=== PATIENT | male | born 1960 ===

== ENCOUNTER 2017-01-25 09:23 | Inpatient (IN) | payer OTHER ==
[2017-01-25 10:12] LABS: ADD MANUAL DIFF? NO
[2017-01-25 10:13] LABS: VENOUS BLOOD GAS BASE EXCESS -1.7 mmol/L (0.0-2.0); VENOUS BLOOD PH 7.39 (7.32-7.43)
[2017-01-25 10:14] LABS: BASO # 0.01 K/mm3 (0.0-2.0); BASO % 0.2 % (0.0-3.0); GRAN % 93.4 % (50.0-68.0); HEMATOCRIT 35.3 % (42.0-52.0); LYMPH # 0.2 (1.2-3.4); LYMPH % 4.5 % (22.0-35.0); MEAN CELL VOLUME 94.4 fL (80.0-105.0); MEAN CORPUSCULAR HEMOGLOBIN 34.2 pg (25.0-35.0); MEAN CORPUSCULAR HGB CONC 36.3 g/dl (31.0-37.0); MEAN PLATELET VOLUME 10.2 fl (7.0-11.0); MONO # 0.1 (0.1-0.6); MONO % 1.9 % (1.0-6.0); PLATELET COUNT 294 10^3/uL (120.0-450.0); RED CELL DISTRIBUTION WIDTH 14.3 % (11.5-14.5); WHITE BLOOD COUNT 5.4 10^3/ul (4.5-11.0)
--- NOTE | 2017-01-25 10:17 | RAD ---
HISTORY: Sepsis Patient COMPARISON: No prior. FINDINGS: LUNGS: Extensive opacification throughout left levar thorax may represent multi lobar pneumonia. No right-sided opacity. PLEURA: No significant pleural effusion identified, no pneumothorax apparent. CARDIOVASCULAR: Heart size cannot be evaluated due to silhouetting from adjacent alveolar opacity. OSSEOUS STRUCTURES: No significant abnormalities. VISUALIZED UPPER ABDOMEN: Normal. OTHER FINDINGS: None. IMPRESSION: Probable multi lobar pneumonia of left lung. No pleural effusion.
[2017-01-25 10:18] LABS: ARTERIAL BLOOD GAS HCO3 19.6 mmol/L (21-28); ARTERIAL BLOOD GAS PH 7.52 (7.35-7.45)
[2017-01-25] MEDS ORDERED: Vancomycin 1gm in NS 250ml 250 ML IVPB STA (10:20)
[2017-01-25] MEDS ORDERED: Cefepime IV 2 gm in NS 100 ML IVPB STA (10:20)
[2017-01-25 10:23] LABS: ALKALINE PHOSPHATASE 74 U/L (38-133); ALT/SGPT 32 U/L (7-56); AST/SGOT 36 U/L (15-59); BILIRUBIN,TOTAL 1.1 mg/dL (0.2-1.3); BLOOD UREA NITROGEN 14 mg/dL (7-21); CALCIUM 8.6 mg/dL (8.4-10.5); CARBON DIOXIDE 24 mmol/L (21-33); CHLORIDE 82 mmol/L (98-107); GFR AFRICAN-AMERICAN > 60; GLUCOSE,RANDOM 210 mg/dL (70-110); MAGNESIUM 1.7 mg/dL (1.7-2.2); PHOSPHOROUS 1.6 mg/dL (2.5-4.5); POTASSIUM 3.3 mmol/L (3.6-5.0); SODIUM 120 mmol/L (132-148); TOTAL PROTEIN 8.1 g/dL (5.8-8.3)
[2017-01-25 10:24] LABS: INR 0.94 (0.93-1.08); PARTIAL THROMBOPLASTIN TIME 39.6 Seconds (23.7-30.8)
[2017-01-25] MEDS ORDERED: Albuterol-Ipratrop 3 mg / 0.5 (3 ml) UD ONE (10:33)
[2017-01-25 10:35] LABS: TROPONIN I 0.03 ng/mL
[2017-01-25] MEDS ORDERED: Potassium Chloride 20 mEq ER Tab PO STA (10:35)
[2017-01-25 10:39] LABS: PH,URINE 6.5 (4.7-8.0); URINE BILIRUBIN NEGATIVE (NEGATIVE); URINE BLOOD LARGE (NEGATIVE); URINE GLUCOSE (UA) NEGATIVE (NEGATIVE); URINE KETONE NEGATIVE (NEGATIVE); URINE LEUKOCYTE ESTERASE NEGATIVE Leu/uL (NEGATIVE); URINE PROTEIN 100 mg/dL (<30 mg/dL); URINE UROBILINOGEN >=8.0 E.U./dL (<1 E.U./dL)
[2017-01-25 10:41] LABS: URINE APPEARANCE SL CLOUDY (CLEAR); URINE COLOR YELLOW (YELLOW)
[2017-01-25 10:46] LABS: URINE BACTERIA TRACE (NEG); URINE RBC TNTC /hpf (0-2); URINE WBC 0 - 2 /hpf (0-6)
--- NOTE | 2017-01-25 11:11 | ED PDOC ---
Arrival/HPI - General Chief Complaint: Altered Mental Status Time Seen by Provider: 01/25/17 09:45 Historian: Patient, Other ("ex-") - History of Present Illness Narrative History of Present Illness (Text): 01/25/17 11:08 Patient is a 56 yo male who states that he has been "sick since " which he described as feeling tired and coughing for several days. Patient presents with family member who identifies herself as his ex-, who states that "this morning at 8 am when he woke up he seemed confused and unsteady". His family states that he did not seem this tired before he went to bed last night. Family states that he "had the flu starting last week" which she reports consists of bodyaches and coughing. He reportedly was coughing a great deal last night. Ex- states that he recently moved back in with her and she has been home with him over the past few days. She reports prior history of "drinking", but she is not certain if he has been drinking recently. Patient denies drinking recently. He does admit to smoking daily. Family states she "thinks he has been taking a lot of Dayquil or Nyquil". Patient denies taking excessive amount, denies overdose or suicidal ideation. Also patient reportedly has been evaluated for some abdominal distension by his PMD Dr. Renteria. He denies abdominal pain, nausea or vomiting currently. Patient denies headache, denies neck pain, denies chest pain or pleuritic discomfort. Patient denies recent travel or known unusual exposures. Time/Duration: < week Symptom Onset: Gradual Symptom Course: Worsening Past Medical History - Travel History Have you recently traveled outside [place] w/in the past 3 mons?: No - Infectious Disease Hx of Infectious Diseases: None - Cardiac Hx Hypertension: Yes - Psychiatric Hx Anxiety: Yes Hx Substance Use: No Family/Social History Family/Social History: Unknown Family HX Smoking Status: Light Smoker < 10 Cigarettes Daily Hx Alcohol Use: Yes Hx Substance Use: No Allergies/Home Meds Allergies/Adverse Reactions: Allergies No Known Allergies Allergy (Verified 01/25/17 09:37) Home Medications: Home Meds Medication Instructions Recorded Confirmed Ammonium Lactate 12% [Lac-Hydrin] 72 % TP DAILY 01/25/17 01/25/17 Betamethasone Creame 45 gm TOP BID 01/25/17 01/25/17 Enalapril/Hydrochlorothiazide 5 - 12.5 mg PO BID 01/25/17 01/25/17 [Enalapril Maleate and Hydrochlorothiazide 10 ] Levocetirizine Dihydrochloride 5 mg PO HS 01/25/17 01/25/17 [Xyzal] Mometasone 0.1% [Elocon 0.1%] 0.1 % TP DAILY 01/25/17 01/25/17 PARoxetine [Paxil] 60 mg PO DAILY 01/25/17 01/25/17 Review of Systems - Review of Systems Constitutional: Fatigue, Fevers Eyes: absent: Vision Changes, Photophobia, Eye Pain ENT: absent: Hearing Changes, Sore Throat, Rhinorrhea, Epistaxis Respiratory: SOB, Cough. absent: Sputum Cardiovascular: CORNEJO. absent: Chest Pain, Palpitations, Edema, Syncope Gastrointestinal: Appetite Changes. absent: Abdominal Pain, Hematochezia, Hematemesis Genitourinary Male: absent: Dysuria, Frequency, Hematuria, Urinary Output Changes Musculoskeletal: absent: Back Pain, Joint Swelling Skin: absent: Rash Neurological: Gait Changes, Disequilibrium. absent: Headache, Dizziness, Focal Weakness, Facial Droop, Seizure Endocrine: absent: Polyuria Hemo/Lymphatic: absent: Easy Bleeding Psychiatric: absent: Anxiety, Depression, Suicidal Ideation Physical Exam - Physical Exam Narrative Physical Exam (Text): Head: Atraumatic. Normocephalic. No scalp lesions or facial edema noted. Eyes: PERRL. EOMI. Conjunctivae are not pale or icteric. ENT: Mucous membranes are dry. Oropharynx without exudates or lesions. No pharyngeal erythema or edema. Neck: Supple. Full ROM. No JVD. No lymphadenopathy. NO MENINGEAL SIGNS. Full flexion and extension. No midline pain. Trachea midline. Cardiovascular: Tachycardic with systolic murmur. Pulmonary/Chest: Tachypneic, bilateral rhonchi left greater than right, diminished breath sounds at left base. Chest wall nontender. Accessory muscle usage. Abdominal: Distended but soft and nontender. No pulsatile masses. ? hepatomegaly on palpation. Rectal: brown heme negative stool, no melena Genitourinary: no testicular pain or swelling Back: No CVA tenderness. No rash. No midline pain or erythema or edema. Extremities: No edema. No cyanosis. No clubbing. Full range of motion in all extremities. No calf tenderness. Distal pulses intact. Skin: Skin is diaphoretic. No petechiae or purpura. Neurological: Alert, awake, and oriented. He knows where he is, identifies date and year, answers ALL questions appropriately in ED. He appears fatigued and answers questions slowly but is appropriate in ED, no slurred speech. No meningeal signs. Not hyperreflexive. No pronator drift noted. No facial droop. No meningeal signs. Cranial nerves intact. Visual acuity and staley intact. Motor exam intact in upper and lower extremities. Sensory exam intact. Psychiatric: Denies suicidal ideation. Answers questions appropriately. Vital Signs Reviewed: Yes Vital Signs Temp Pulse Resp BP Pulse Ox 01/25/17 14:40 136 H 26 H 93/47 L 88 L 01/25/17 14:20 142 H 24 105/65 89 L 01/25/17 14:06 139 H 25 H 109/70 88 L 01/25/17 13:45 144 H 24 113/74 89 L 01/25/17 13:30 102.5 F H 148 H 107/70 86 L 01/25/17 13:15 150 H 26 H 131/95 H 85 L 01/25/17 13:00 154 H 32 H 142/97 H 86 L 01/25/17 12:50 150 H 22 165/91 H 92 L 01/25/17 12:33 147 H 30 H 169/118 H 89 L 01/25/17 12:25 141 H 30 H 175/124 H 89 L 01/25/17 12:08 140 H 40 H 140/84 86 L 01/25/17 11:57 146 H 39 H 105/68 91 L 01/25/17 11:30 148 H 34 H 179/103 H 89 L 01/25/17 11:06 136 H 32 H 159/93 H 93 L 01/25/17 10:45 148 H 28 H 139/90 92 L 01/25/17 10:38 137 H 18 150/98 H 95 01/25/17 10:20 135 H 30 H 123/69 87 L 01/25/17 10:14 140 H 26 H 129/78 89 L 01/25/17 10:00 105.3 F H 01/25/17 09:45 102.8 F H 129 H 18 149/90 91 L 01/25/17 09:30 100.8 F H 137 H 18 158/93 H 94 L 01/25/17 09:24 102.8 F H 128 H 18 149/90 90 L Temperature: Febrile Pulse: Tachycardic Respiratory Rate: Tachypneic Appearance: Positive for: Ill-Appearing Pain Distress: Severe Mental Status: Positive for: Alert and Oriented X 3 Finger Stick Blood Glucose: 230 Medical Decision Making ED Course and Treatment: Patient seen upon arrival to [facility], accompanied by family member identified as his ex-. History obtained by ex- as well as patient. Family expresses concern that patient appeared confused and unsteady on his feet this morning approximately 8 am and expresses concern that "maybe he had a stroke I don't know he wasn't acting like this last night". On my initial exam, he is alert, oriented, although noted to be tachpyneic and tachycardic. Patient states he has been coughing and had "flu" for past several days. He was not evaluated by a physician over the past several days while he has been ill. Ex- states that his morning he "got up and seemed to be very weak" and "unsteady". Patient on initial ED exam answers all questions, oxygen saturations 97% on supplemental oxygen. Differential diagnosis initially reviewed with family at bedside. Rectal temperature requested given history of "flu", temp found to be 105. IV fluids and tylenol ordered. IV fluids ordered as per sepsis protocol as patient tachycardic, tachypneic and febrile. With serial exams, he remained awake, alert, conversive. NO headache or neck pain. Given initial history of "not acting himself this morning", consultation with on-call neurologist, Dr. Raphael obtained, although presentation I feel is most likely related to infectious etiology not cva/tia. Patient remains tachycardic and tachypneic. With noted fever, high suspicion for infectious component to his presentations. Chest xray reviewed, as well as radiologist interpretation, significant infiltrates noted consistent with pneumonia. IV maxipime and vancomycin ordered for suspicion of sepsis as well as pulmonary etiology of fever/infection given initial chest xray reading. IV Levaquin ordered as well. Nebulizers ordered, patient remained tachypneic. CT head and abdomen/pelvis ordered as there is a history of AMS prior to arrival , and patient noted to be hyponatremic. CT abdomen ordered as there is history of recent abdominal distension and "liver problems", to evaluate for additional sources of infection. Given hyponatremia cannot exclude specific infectious process such as Legionella or electrolyte derangement contributing to patient's symptoms. Given critical presentation of patient, emergent consultation obtained with icu physician. Case also discussed with Dr. Polina Leigh, on-call medical physician for admission, who requested Dr. Duval for pulmonology consultation as well as Dr. Alexandre for Infectious Disease consultation. Patient re-evaluated upon return from CT, noted to have worsening tachypnea, although on 100% face mask his saturations were 89-92%. Dr. Polina Leigh and Dr. Duval at bedside and evaluated patient at bedside. I also discussed chest xray, patient's exam and labs with Infectious Disease consult Dr. Gutierrez, covering for Dr. Alexandre, and discussed patient current antibiotics and management up until that point. IV fluids continued as per CODE SEPSIS protocol. I discussed with patient in length his abnormal chest xray as well as reviewed his labs. I discussed with him worsening oxygenation, and he states he feels more short of breath despite continued nebulizers and 100% oxygen. Due to increased tachypnea, hypoxia despite multiple nebs and 100% oxygen, and worsening accessory muscle usage, intubation was discussed with patient. I did discuss this with patient in length in terms of indications and risks. He denies prior medication allergies or adverse effect to medications. No other family members available at bedside. ID verified, patient prepared for rapid sequence intubation. Patient preoxygenated, Etomidate given for sedation, then succynicholine for paralysis. Secretions suctioned. Patient intubated with 7.5 ET tube, there is proper color change on detector after intubation, and there is equal breath sounds noted with bag ventilation after intubation. Post intubation chest xray reviewed, confirmed placement. Dr. Neda Hector, tree warden, presented to ED to evaluate patient. Care turned over to ICU team at 13:00. I discussed patient's critical condition in length and in laymen's terms with patient's ex-, by request she also requested that I speak to patient's children after my conversation with her. Instructor Trainer [employer] has reviewed patient's care with Dr. Renteria, patient's PMD. - Critical Care Critical Care Minutes: 75 minutes - Lab Interpretations Lab Results: 01/25/17 09:50 01/25/17 09:50 Lab Results 01/25/17 11:20: Serum Osmolality 258 L 01/25/17 11:10: Urine Opiates Screen Negative, Urine Methadone Screen Negative, Ur Barbiturates Screen Negative, Ur Phencyclidine Scrn Negative, Ur Amphetamines Screen Negative, U Benzodiazepines Scrn Negative, U Oth Cocaine Metabols Negative, U Cannabinoids Screen Negative 01/25/17 10:20: Urine Color Yellow, Urine Appearance Sl cloudy, Urine pH 6.5, Ur Specific [place] 1.020, Urine Protein 100 H, Urine Glucose (UA) Negative, Urine Ketones Negative, Urine Blood Large H, Urine Nitrate Negative, Urine Bilirubin Negative, Urine Urobilinogen >=8.0, Ur Leukocyte Esterase Negative, Urine RBC Tntc, Urine WBC 0 - 2, Urine Bacteria Trace 01/25/17 10:10: pCO2 24 L, pO2 75.0 L, HCO3 19.6 L, ABG pH 7.52 H, ABG Total CO2 20.3 L, ABG O2 Saturation 96.8, ABG Base Excess -1.6, ABG Potassium 3.0 L, Sodium 120.0 L*, Chloride 93.0 L, Glucose 189 H, Lactate 2.0, FiO2 100.0, Arterial Blood Potassium 3.0 L 01/25/17 09:50: WBC 5.4, RBC 3.74, Hgb 12.8 L, Hct 35.3 L, MCV 94.4, MCH 34.2, MCHC 36.3, RDW 14.3, Plt Count 294, MPV 10.2, Gran % 93.4 H, Lymph % (Auto) 4.5 L, Eaton % (Auto) 1.9, Eos % (Auto) 0.0 L, Baso % (Auto) 0.2, Gran # 5.00, Lymph # 0.2 L, Eaton # 0.1, Eos # 0.0, Baso # 0.01, PT 10.2, INR 0.94, APTT 39.6 H, pO2 35, VBG pH 7.39, VBG pCO2 38.0 L, VBG HCO3 23.0, VBG Total CO2 24.2, VBG O2 Sat (Calc) 65.8 H, VBG Base Excess -1.7 L, VBG Potassium 3.5 L, Sodium 121.0 L, Chloride 85.0 L, Glucose 209 H, Lactate 3.3 H, FiO2 21.0, Potassium 3.3 L, Carbon Dioxide 24, Anion Gap 17, BUN 14, Creatinine 1.0, Est GFR ( Amer) > 60, Est GFR (Non-Af Amer) > 60, Random Glucose 210 H, Calcium 8.6, Phosphorus 1.6 L, Magnesium 1.7, Total Bilirubin 1.1, AST 36, ALT 32, Alkaline Phosphatase 74, Lactate Dehydrogenase 500, Total Creatine Kinase 81, Troponin I 0.03, NT-Pro -B Natriuret Pep 689 H, Total Protein 8.1, Albumin 3.9, Globulin 4.1, Albumin/ Globulin Ratio 1.0 L, Venous Blood Potassium 3.5 L, Influenza Typ A,B (EIA) Negative for flu a/b 01/25/17 09:43: POC Glucose (mg/dL) 230 H 01/25/17 09:40: Salicylates < 1 L, Acetaminophen < 10.0 L, Alcohol, Quantitative < 10 I have reviewed the lab results: Yes Interpretation: Abnormal lab values - RAD Interpretation Radiology Orders: 01/25/17 09:45 CHEST PORTABLE [RAD] Stat 01/25/17 09:47 ABD & PELVIS W/O PO OR IV CONT [CT] Stat HEAD W/O CONTRAST [CT] Stat 01/25/17 10:59 CHEST W/O CONTRAST [CT] Stat 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 - EKG Interpretation EKG Interpretation (Text): 01/25/17 16:12 EKG at 0941 sinus tachycardia rate of 129 Interpreted by ED Physician: Yes Type: 12 lead EKG - Medication Orders Current Medication Orders: Discontinued Medications Acetaminophen (Tylenol 650 Mg Supp) 650 mg RC ONCE STA Stop: 01/25/17 09:49 Last Admin: 01/25/17 10:03 Dose: 650 MG Albuterol/Ipratropium (Duoneb 3 Mg/0.5 Mg (3 Ml) Ud) 3 ml IH Q15M CHANNING Stop: 01/25/17 11:16 Last Admin: 01/25/17 11:45 Dose: 3 ML Albuterol/Ipratropium (Duoneb 3 Mg/0.5 Mg (3 Ml) Ud) Confirm Administered Dose 3 ml .ROUTE .STK-MED ONE Stop: 01/25/17 10:34 Last Admin: 01/25/17 11:15 Dose: 3 ML Albuterol/Ipratropium (Duoneb 3 Mg/0.5 Mg (3 Ml) Ud) 3 ml IH Q15M CHANNING Stop: 01/25/17 12:01 Last Admin: 01/25/17 12:30 Dose: 3 ML Cisatracurium Besylate (Nimbex) 9 mg IV ONCE ONE Stop: 01/25/17 13:16 Last Admin: 01/25/17 13:20 Dose: 9 MG eMAR Start Stop Document 01/25/17 13:20 [facility] (Rec: 01/25/17 13:[id number]) Intravenous Solution Start Date 01/25/17 Start Time 13:20 End Date 01/25/17 End time 13:22 Total Infusion Time 2 Cisatracurium Besylate (Nimbex) 9 mg IV ONCE ONE Stop: 01/25/17 15:03 Epinephrine Bitartrate (Epinephrine) Confirm Administered Dose 1 mg .ROUTE .STK- MED ONE Stop: 01/25/17 15:42 Epinephrine HCl (Epinephrine) Confirm Administered Dose 2 mg .ROUTE .STK-MED ONE Stop: 01/25/17 15:42 Etomidate (Amidate) Confirm Administered Dose 20 mg IV .STK-MED ONE Stop: 01/25/17 11:54 Last Admin: 01/25/17 12:14 Dose: 20 MG eMAR Start Stop Document 01/25/17 12:14 STORY READER (Rec: 01/25/17 13:54 [place] [id number]) Intravenous Solution Start Date 01/25/17 Start Time 12:00 End Date 01/25/17 End time 12:01 Total Infusion Time 1 Fentanyl (Fentanyl) Confirm Administered Dose 250 mcg IV .STK-MED ONE Stop: 01/25/17 13:23 Last Admin: 01/25/17 13:25 Dose: 250 MCG eMAR Start Stop Document 01/25/17 13:25 STORY READER (Rec: 01/25/17 14:05 [id number]) Intravenous Solution Start Date 01/25/17 Start Time 13:25 End Date 01/25/17 End time 13:25 Total Infusion Time 0 Fentanyl (Fentanyl) 150 mcg IV ONCE ONE Stop: 01/25/17 13:52 Last Admin: 01/25/17 13:25 Dose: 150 MCG Comments: emergency eMAR Start Stop Document 01/25/17 13:25 STORY READER (Rec: 01/25/17 14:03 [place] [id number]) Intravenous Solution Start Date 01/25/17 Start Time 14:03 Hydrocortisone Sodium Succinate (Solu-Cortef) 100 mg IVP Q8 CHANNING Sodium Chloride 1,780 ml/ IV (SUPPLIES) 1,780 mls @ 3,565.26 mls/hr IV ONCE ONE PRN Reason: 60 ML/KG/HR Stop: 01/25/17 09:46 Last Admin: 01/25/17 10:08 Dose: 3,565.26 MLS/HR eMAR Start Stop Document 01/25/17 10:08 STORY READER (Rec: 01/25/17 10:09 [place] [id number]) Intravenous Solution Start Date 01/25/17 Start Time 10:08 End Date 01/25/17 End time 10:38 Total Infusion Time 30 Cefepime HCl (Maxipime 2gm) 100 mls @ 100 mls/hr IVPB STAT STA PRN Reason: Protocol Stop: 01/25/17 11:19 Last Admin: 01/25/17 10:40 Dose: 100 MLS/HR eMAR Start Stop Document 01/25/17 10:40 MMA (Rec: 01/25/17 10:40 MMA [id number]) Intravenous Solution Start Date 01/25/17 Start Time 10:40 End Date 01/25/17 End time 11:40 Total Infusion Time 60 Vancomycin HCl (Vancomycin 1gm) 250 mls @ 167 mls/hr IVPB STAT STA PRN Reason: Protocol Stop: 01/25/17 11:49 Last Admin: 01/25/17 11:58 Dose: 167 MLS/HR eMAR Start Stop Document 01/25/17 11:58 STORY READER (Rec: 01/25/17 11:58 [place] [id number]) Intravenous Solution Start Date 01/25/17 Start Time 11:58 End Date 01/25/17 End time 13:28 Total Infusion Time 90 Levofloxacin/Dextrose (Levaquin 500mg) 100 mls @ 100 mls/hr IVPB DAILY CHANNING Last Admin: 01/25/17 16:00 Dose: 100 MLS/HR eMAR Start Stop Document 01/25/17 16:00 GIRISH (Rec: 01/25/17 19:01 GIRISH [id number]) Intravenous Solution Start Date 01/25/17 Start Time 16:00 End Date 01/25/17 End time 17:00 Total Infusion Time 60 Propofol (Diprivan) Confirm Administered Dose 100 mls @ ud .ROUTE .STK-MED ONE Stop: 01/25/17 12:28 Last Admin: 01/25/17 12:35 Dose: 10 MG Fentanyl Citrate (Fentanyl Citrate/Sodium Chloride 1 Mg/100 Ml) 100 mls @ 2 mls /hr IV .Q24H PRN; Protocol; 20 MCG/HR PRN Reason: TITRATE PER MD ORDER Last Admin: 01/25/17 13:10 Dose: 2 MLS/HR Titration Intervention Document 01/25/17 13:10 STORY READER (Rec: 01/25/17 13:57 [place] [id number]) Titration Intake Container Volume 100 Titration Dosing Titration Dose 20 IV Rate 2 Intake/Decrease Start eMAR Start Stop Document 01/25/17 13:10 STORY READER (Rec: 01/25/17 13:57 [place] [id number]) Intravenous Solution Start Date 01/25/17 Start Time 13:10 Potassium Phosphate 15 mmole/ (Dextrose) 255 mls @ 42.5 mls/hr IVPB ONCE ONE Stop: 01/25/17 19:05 Last Admin: 01/25/17 15:25 Dose: 42.5 MLS/HR eMAR Start Stop Document 01/25/17 15:25 STORY READER (Rec: 01/25/17 15:25 [place] [id number]) Intravenous Solution Start Date 01/25/17 Start Time 15:25 Potassium Chloride (Potassium Chloride 20 Meq/100 Ml) 100 mls @ 50 mls/hr IVPB Q2H CHANNING Stop: 01/25/17 17:14 Magnesium Sulfate/Dextrose (Magnesium Sulfate 1 Gm/100 Ml D5w) 100 mls @ 100 mls/hr IVPB ONCE ONE Stop: 01/25/17 14:06 Last Admin: 01/25/17 19:53 Dose: 100 MLS/HR eMAR Start Stop Document 01/25/17 19:53 KAC (Rec: 01/25/17 19:54 [facility]14ICUPC) Intravenous Solution Start Date 01/25/17 Start Time 19:53 End Date 01/25/17 End time 20:53 Total Infusion Time 60 Vancomycin HCl (Vancomycin 1gm) 250 mls @ 167 mls/hr IVPB Q12H CHANNING PRN Reason: Protocol Last Admin: 01/25/17 11:58 Dose: 167 MLS/HR eMAR Start Stop Document 01/25/17 11:58 [facility] (Rec: 01/25/17 14:05 [place] [id number]) Intravenous Solution Start Date 01/25/17 Start Time 14:05 Cisatracurium Besylate 200 mg/ (Sodium Chloride) 200 mls @ 5.34 mls/hr IV .Q24H PRN; Protocol; 1.5 MCG/KG/MIN PRN Reason: TITRATE PER MD ORDER Sodium Chloride 1,780 ml/ IV (SUPPLIES) 1,780 mls @ 3,565.26 mls/hr IV ONCE ONE PRN Reason: 60 ML/KG/HR Stop: 01/25/17 10:16 Last Admin: 01/25/17 10:15 Dose: 3,565.26 MLS/HR eMAR Start Stop Document 01/25/17 10:15 [facility] (Rec: 01/25/17 14:[id number]) Intravenous Solution Start Date 01/25/17 Start Time 10:15 End Date 01/25/17 End time 10:45 Total Infusion Time 30 Meropenem 1 gm/ Sodium (Chloride) 100 mls @ 100 mls/hr IVPB Q8 CHANN[place] PRN Reason: Protocol Stop: 02/01/17 18:10 Last Admin: 01/25/17 19:52 Dose: 100 MLS/HR eMAR Start Stop Document 01/25/17 19:52 [facility] (Rec: 01/25/17 19:53 [id number]) Intravenous Solution Start Date 01/25/17 Start Time 19:52 End Date 01/25/17 End time 20:52 Total Infusion Time 60 Calcium Gluconate 1,000 mg/ (Dextrose) 110 mls @ 110 mls/hr IVPB ONCE ONE Stop: 01/25/17 21:10 Last Admin: 01/25/17 21:00 Dose: 110 MLS/HR eMAR Start Stop Document 01/25/17 21:00 KA (Rec: 01/25/17 21:[address]) Intravenous Solution Start Date 01/25/17 Start Time 21:00 End Date 01/25/17 End time 22:00 Total Infusion Time 60 Propofol (Diprivan) Confirm Administered Dose 100 mls @ ud .ROUTE .STK-MED ONE Stop: 01/25/17 20:45 Norepinephrine Bitartrate 4 mg (/ Dextrose) 254 mls @ 15.24 mls/hr IV .[id number] PRN; Protocol; 4 MCG/MIN PRN Reason: TITRATE PER MD ORDER Propofol (Diprivan) 100 mls @ 1.783 mls/hr IV .Q24H PRN; Protocol; 5 MCG/KG/MIN PRN Reason: TITRATE PER MD ORDER Last Admin: 01/25/17 21:06 Dose: 1.783 MLS/HR Titration Intervention Document 01/25/17 21:06 [facility] (Rec: 01/25/17 21:[address]) Titration Intake Container Volume 100 Titration Dosing Titration Dose 5 IV Rate 1.783 Intake/Decrease Start eMAR Start Stop Document 01/25/17 21:06 [facility] (Rec: 01/25/17 21:[address]) Intravenous Solution Start Date 01/25/17 Start Time 21:07 Amiodarone HCl/Dextrose (Nexterone 150 Mg In Dextrose 100 Ml (Premix)) Confirm Administered Dose 100 mls @ ud .ROUTE .STK-MED ONE Stop: 01/25/17 21:32 Amiodarone HCl/Dextrose (Nexterone 150 Mg In Dextrose 100 Ml (Premix)) 100 mls @ 600 mls/hr IVPB ONCE ONE PRN Reason: Protocol Stop: 01/25/17 21:48 Amiodarone HCl/Dextrose (Nexterone 360 Mg In D5w 200 Ml (Premix)) 200 mls @ 33.333 mls/hr IV .Q6H CHANNING; 1 MG/MIN PRN Reason: Protocol Last Admin: 01/25/17 21:55 Dose: 33.333 MLS/HR MAR Pulse and Blood Pressure Document 01/25/17 21:55 KAC (Rec: 01/26/17 00:22 [id number] Pulse Pulse Rate (60-90 beats/min) 150 Blood Pressure Blood Pressure (100/60-150/90 mm Hg) 97/62 eMAR Start Stop Document 01/25/17 21:55 KA (Rec: 01/26/17 00:22 [facility]14[facility] Intravenous Solution Start Date 01/26/17 Start Time 21:55 Epinephrine HCl 1 mg/ Sodium (Chloride) 51 mls @ 3.06 mls/hr IV .[id number] PRN; Protocol; 1 MCG/MIN PRN Reason: TITRATE PER MD ORDER Epinephrine HCl 1 mg/ Sodium (Chloride) 51 mls @ 3.06 mls/hr IV .[id number] PRN; Protocol; 1 MCG/MIN PRN Reason: TITRATE PER MD ORDER Last Admin: 01/25/17 23:15 Dose: 3.06 MLS/HR Titration Intervention Document 01/25/17 23:15 [facility] (Rec: 01/26/17 00:28 [place] [id number]) Titration Intake Container Volume 51 Titration Dosing Titration Dose 1 IV Rate 3.06 Intake/Decrease Start eMAR Start Stop Document 01/25/17 23:15 [facility] (Rec: 01/26/17 00:28 [place] [id number] Intravenous Solution Start Date 01/25/17 Start Time 23:15 Insulin Human Regular (Humulin R High) 0 units SC ACHS CHANNING PRN Reason: Protocol Last Admin: 01/26/17 00:25 Dose: Not Given Non-Admin Reason: BP Parameters Not Met MAR Blood Glucose Document 01/26/17 00:25 [facility] (Rec: 01/26/17 00:25 [place] [id number]) Blood Glucose Finger Stick Blood Glucose (70-120) 287 Methylprednisolone (Solu-Medrol) 125 mg IVP ONCE ONE Stop: 01/25/17 23:02 Last Admin: 01/25/17 23:00 Dose: 125 MG IVP Administration Document 01/25/17 23:00 [facility] (Rec: 01/26/17 00:24 [facility]14[facility] Charges for Administration # of IVP Administrations 1 Midazolam HCl (Versed Inj) 5 mg IVP STAT STA Stop: 01/25/17 13:01 Last Admin: 01/25/17 13:10 Dose: 5 MG IVP Administration Document 01/25/17 13:10 [facility] (Rec: 01/25/17 13:53 [place] [id number]) Charges for Administration # of IVP Administrations 1 Potassium Chloride (K-Dur 20 Meq Er Tab) 40 meq PO STAT STA Stop: 01/25/17 10:36 Last Admin: 01/25/17 19:01 Dose: Not Given Non-Admin Reason: NPO Sodium Bicarbonate (Sodium Bicarbonate (8.4%) 50 Meq Syringe) 100 meq IVP ONCE ONE Stop: 01/25/17 18:31 Last Admin: 01/25/17 18:49 Dose: 100 MEQ IVP Administration Document 01/25/17 18:49 GIRISH (Rec: 01/25/17 18:[address]) Charges for Administration # of IVP Administrations 2 Sodium Bicarbonate (Sodium Bicarbonate (8.4%) 50 Meq Syringe) Confirm Administered Dose 100 meq .ROUTE .STK-MED ONE Stop: 01/25/17 18:33 Last Admin: 01/25/17 18:50 Dose: 100 MEQ Comments: see below Succinylcholine Chloride (Quelicin) Confirm Administered Dose 200 mg IV .STK- MED ONE Stop: 01/25/17 11:55 Last Admin: 01/25/17 12:14 Dose: 200 MG eMAR Start Stop Document 01/25/17 12:14 [facility] (Rec: 01/25/17 13:55 [place] [id number]) Intravenous Solution Start Date 01/25/17 Start Time 12:01 End Date 01/25/17 End time 12:01 Total Infusion Time 0 Disposition/Present on Arrival - Present on Arrival Any Indicators Present on Arrival: No History of DVT/PE: No History of Uncontrolled Diabetes: No Urinary Catheter: Yes History of Decub. Ulcer: No History Surgical Site Infection Following: None - Disposition Have Diagnosis and Disposition been Completed?: Yes Diagnosis: Respiratory failure, Sepsis, Pneumonia, Hyponatremia, Fever Disposition: HOSPITALIZED Disposition Time: 13:00 Patient Plan: Admission, ICU Condition: CRITICAL
[2017-01-25] MEDS: Albuterol-Ipratrop 3 mg / 0.5 (3 ml) UD IH SCH ×6 (11:15→12:30)
--- NOTE | 2017-01-25 11:30 | CT ---
PROCEDURE: CT HEAD WITHOUT CONTRAST. HISTORY: ams COMPARISON: None available. TECHNIQUE: Axial computed tomography images were obtained through the head/brain without intravenous contrast. Radiation dose: Total exam DLP = 1670.90 mGy-cm. This CT exam was performed using one or more of the following dose reduction techniques: Automated exposure control, adjustment of the mA and/or kV according to patient size, and/or use of iterative reconstruction technique. FINDINGS: Examination limited due to extensive patient motion artifact. HEMORRHAGE: No intracranial hemorrhage. BRAIN: No mass effect or edema. No atrophy or chronic microvascular ischemic changes. VENTRICLES: Unremarkable. No hydrocephalus. CALVARIUM: Unremarkable. PARANASAL SINUSES: Unremarkable as visualized. No significant inflammatory changes. MASTOID AIR CELLS: Unremarkable as visualized. No inflammatory changes. OTHER FINDINGS: None. IMPRESSION: No intracranial hemorrhage. No intracranial mass or evidence of acute infarct. Examination limited due to patient motion artifact.
--- NOTE | 2017-01-25 11:34 | CT ---
PROCEDURE: CT Abdomen and Pelvis without intravenous contrast HISTORY: sepsis COMPARISON: None. TECHNIQUE: Without contrast.. Contrast Dose: 0 Radiation dose: Total exam DLP = 263.56 mGy-cm. This CT exam was performed using one or more of the following dose reduction techniques: Automated exposure control, adjustment of the mA and/or kV according to patient size, and/or use of iterative reconstruction technique. FINDINGS: LOWER THORAX: Consolidation in the lingula. Evaluation limited due to respiratory motion artifact. Small left pleural effusion. Patchy opacities in right middle lobe. LIVER: Unremarkable. No gross lesion or ductal dilatation. GALLBLADDER AND BILE DUCTS: Unremarkable. PANCREAS: Unremarkable. No gross lesion or ductal dilatation. SPLEEN: Unremarkable. ADRENALS: Unremarkable. No mass. KIDNEYS AND URETERS: Unremarkable. No hydronephrosis. No solid mass. VASCULATURE: Unremarkable. No aortic aneurysm. BOWEL: Unremarkable. No obstruction. No gross mural thickening. APPENDIX: Unremarkable. Normal appendix. PERITONEUM: Unremarkable. No free fluid. No free air. LYMPH NODES: Unremarkable. No enlarged lymph nodes. BLADDER: Nondistended. Grossly unremarkable. REPRODUCTIVE: Normal prostate BONES: No acute fracture. OTHER FINDINGS: None. IMPRESSION: No intra-abdominal inflammatory process identified. There is lingular consolidation with patchy opacities in the right middle lobe and small left pleural effusion. Please see report of CT chest of the same date.
--- NOTE | 2017-01-25 11:46 | CT ---
PROCEDURE: CT Chest without contrast HISTORY: SOB COMPARISON: None. TECHNIQUE: Contiguous axial images were obtained through the chest without intravenous contrast enhancement. Sagittal and coronal reconstructions were performed. Radiation dose (DLP): mGy-cm. This CT exam was performed using one or more of the following dose reduction techniques: Automated exposure control, adjustment of the mA and/or kV according to patient size, and/or use of iterative reconstruction technique. FINDINGS: LUNGS: Almost complete consolidation of the left upper lobe. There are cystic spaces noted in the superior segment of the left lower lobe likely reflecting underlying emphysema. There is extensive centrilobular emphysema. There are patchy ill-defined opacities seen in the right middle lobe, right lower and upper lobe and left lower lobe, nonspecific but likely infectious. There is a bulla seen medial to the inferior aspect of the left upper lobe, abutting the superior left pericardial surface. MEDIASTINUM: Unremarkable thoracic aorta. No aneurysm. Normal-sized heart. There is slight shift of the heart and mediastinum towards the left side as a result of some left-sided volume loss due to the upper lobe consolidation. Coronary arterial calcification noted. There is a component of atelectasis, therefore. Main pulmonary artery unremarkable. No vascular congestion. Shotty mediastinal lymph nodes, less than 1 cm in short axis. Likely reactive. PLEURA: Small left pleural effusion. No right pleural effusion. No pneumothorax. BONES: No fracture. No destructive lesion. UPPER ABDOMEN: Grossly unremarkable. OTHER FINDINGS: None. IMPRESSION: Almost complete consolidation of left upper lobe. There is some residual mildly aerated lung in the left apex. Extensive centrilobular pulmonary emphysema. Ill-defined patchy opacities in the left lower lobe, right middle lobe and right lower and upper lobes. Likely infectious etiology. Small left pleural effusion. Mild left-sided volume loss with shift of the heart and mediastinum towards the left. Bulla adjacent to the superior left heart border.
[2017-01-25] MEDS ORDERED: Etomidate 20 mg/10ml Inj IV ONE (11:53)
[2017-01-25] MEDS ORDERED: Succinylcholine 200 mg/10 ml Inj IV ONE (11:54)
--- NOTE | 2017-01-25 12:12 | CP.PCM.CON ---
<Farrah Brumfield - Last Filed: 01/25/17 14:01> History of Present Illness - History of Present Illness History of Present Illness: HPI: 56yo M presented to ER with his ex-, who states patient was not feeling well since with worsening productive cough and SOB. Patient is currently intubate din ER, history obtained from patient's ex-, PMD and ER doc. He tried Vicks and niquil. Minimal interaction with his kids x 4 days due to fatigue, lethargy, weakness. Ex- found empty bottle of dayquil, denied taking more than indicated to his ex-. Was supposed to have Abd US tomorrow. Confused this morning, had forgotten the address for his doctor. thought he was drunk. Was complaining of dry mouth. In and out of "odd behavior " over the past couple of days. Productive cough worsened from baseline in past few days. Ex- noticed significant abdominal girth ~5 months ago, became alarmed, asked him to get checked out, was supposed to have Abdominal US tomorrow. No recent travel. Ex- denies any travel in the past 2-3 years. Prior to that , they went to [place] once. At home, patient and family have 2 non-shedding dogs, shaved Welsh cat, one turtle, 2 gecko lizards. No reports of cat scratches or any trauma, minimal interaction with animals as per ex-. Patient was given Vanc, cefepime in ER, intubated for hypoxic RF, saturating in 80s, currently RVSP 400/24/100%/15, On propofol and Fentanyl drips. 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 Active tob abuse 1ppd x 40yrs. Former EtOH abuse, unaware of last drink. . FamilyHx: Mom was chronic EtOH abuser, DM. Allergies: NKDA HomeMeds: Mometasone, Proair, unknown BP med PMD: Dr. Arjun Hester Review of Systems - Review of Systems Systems not reviewed;Unavailable: Intubated Past Patient History - Infectious Disease Hx of Infectious Diseases: None - Past Social History Smoking Status: Unknown If Ever Smoked - CARDIAC Hx Hypercholesterolemia: Yes - PSYCHIATRIC Hx Anxiety: Yes Hx Substance Use: No - SURGICAL HISTORY Hx Surgeries: No Meds Allergies/Adverse Reactions: Allergies Allergy/AdvReac Type Severity Reaction Status Date / Time No Known Allergies Allergy Verified 01/25/17 09:37 - Medications Medications: Current Medications Levofloxacin/Dextrose (Levaquin 500mg) 100 mls @ 100 mls/hr IVPB DAILY [facility] Physical Exam - Head Exam Head Exam: ATRAUMATIC Additional comments: intubated - Eye Exam Eye Exam: Normal appearance, PERRL. absent: EOMI, Scleral icterus - ENT Exam ENT Exam: Mucous Membranes Moist - Neck Exam Neck exam: Positive for: Normal Inspection - Respiratory Exam Respiratory Exam: Accessory Muscle Use, Rhonchi (diffuse, L>R), Respiratory Distress. absent: Clear to Auscultation Bilateral - Cardiovascular Exam Cardiovascular Exam: Tachycardia, +S1, +S2 - GI/Abdominal Exam GI & Abdominal Exam: Distended, Normal Bowel Sounds, Soft. absent: Rigid Additional comments: mild fluid wave - Neurological Exam Additional comments: intubated, sedated on propofol and fentanyl - Skin Skin Exam: Dry, Intact Results - Vital Signs Recent Vital Signs: Last Vital Signs Temp 105.3 F H 01/25/17 10:00 Pulse 137 H 01/25/17 10:38 Resp 18 01/25/17 10:38 BP 150/98 H 01/25/17 10:38 Pulse Ox 95 01/25/17 10:38 - Labs Result Diagrams: 01/25/17 09:50 01/25/17 09:50 Labs: Laboratory Results - last 24 hr 01/25/17 01/25/17 01/25/17 09:40 09:43 09:50 WBC 5.4 RBC 3.74 Hgb 12.8 L Hct 35.3 L MCV 94.4 MCH 34.2 MCHC 36.3 RDW 14.3 Plt Count 294 MPV 10.2 Gran % 93.4 H Lymph % (Auto) 4.5 L Carlton % (Auto) 1.9 Eos % (Auto) 0.0 L Baso % (Auto) 0.2 Gran # 5.00 Lymph # 0.2 L Carlton # 0.1 Eos # 0.0 Baso # 0.01 PT 10.2 INR 0.94 APTT 39.6 H pCO2 pO2 35 HCO3 ABG pH ABG Total CO2 ABG O2 Saturation ABG Base Excess ABG Potassium VBG pH 7.39 VBG pCO2 38.0 L VBG HCO3 23.0 VBG Total CO2 24.2 VBG O2 Sat (Calc) 65.8 H VBG Base Excess -1.7 L VBG Potassium 3.5 L Sodium 120 L Chloride 82 L Glucose 209 H Lactate 3.3 H FiO2 21.0 Potassium 3.3 L Carbon Dioxide 24 Anion Gap 17 BUN 14 Creatinine 1.0 Est GFR ( Amer) > 60 Est GFR (Non-Af Amer) > 60 POC Glucose (mg/dL) 230 H Random Glucose 210 H Calcium 8.6 Phosphorus 1.6 L Magnesium 1.7 Total Bilirubin 1.1 AST 36 ALT 32 Alkaline Phosphatase 74 Lactate Dehydrogenase 500 Total Creatine Kinase 81 Troponin I 0.03 NT-Pro-B Natriuret Pep 689 H Total Protein 8.1 Albumin 3.9 Globulin 4.1 Albumin/Globulin Ratio 1.0 L Arterial Blood Potassium Venous Blood Potassium 3.5 L Urine Color Urine Appearance Urine pH Ur Specific Ridge Urine Protein Urine Glucose (UA) Urine Ketones Urine Blood Urine Nitrate Urine Bilirubin Urine Urobilinogen Ur Leukocyte Esterase Urine RBC Urine WBC Urine Bacteria Salicylates < 1 L Urine Opiates Screen Urine Methadone Screen Acetaminophen < 10.0 L Ur Barbiturates Screen Ur Phencyclidine Scrn Ur Amphetamines Screen U Benzodiazepines Scrn U Oth Cocaine Metabols U Cannabinoids Screen Alcohol, Quantitative < 10 Influenza Typ A,B (EIA) Negative for flu a/b 01/25/17 01/25/17 01/25/17 10:10 10:20 11:10 WBC RBC Hgb Hct MCV MCH MCHC RDW Plt Count MPV Gran % Lymph % (Auto) Carlton % (Auto) Eos % (Auto) Baso % (Auto) Gran # Lymph # Carlton # Eos # Baso # PT INR APTT pCO2 24 L pO2 75.0 L HCO3 19.6 L ABG pH 7.52 H ABG Total CO2 20.3 L ABG O2 Saturation 96.8 ABG Base Excess -1.6 ABG Potassium 3.0 L VBG pH VBG pCO2 VBG HCO3 VBG Total CO2 VBG O2 Sat (Calc) VBG Base Excess VBG Potassium Sodium 120.0 L* Chloride 93.0 L Glucose 189 H Lactate 2.0 FiO2 100.0 Potassium Carbon Dioxide Anion Gap BUN Creatinine Est GFR ( Amer) Est GFR (Non-Af Amer) POC Glucose (mg/dL) Random Glucose Calcium Phosphorus Magnesium Total Bilirubin AST ALT Alkaline Phosphatase Lactate Dehydrogenase Total Creatine Kinase Troponin I NT-Pro-B Natriuret Pep Total Protein Albumin Globulin Albumin/Globulin Ratio Arterial Blood Potassium 3.0 L Venous Blood Potassium Urine Color Yellow Urine Appearance Sl cloudy Urine pH 6.5 Ur Specific Ridge 1.020 Urine Protein 100 H Urine Glucose (UA) Negative Urine Ketones Negative Urine Blood Large H Urine Nitrate Negative Urine Bilirubin Negative Urine Urobilinogen >=8.0 Ur Leukocyte Esterase Negative Urine RBC Tntc Urine WBC 0 - 2 Urine Bacteria Trace Salicylates Urine Opiates Screen Negative Urine Methadone Screen Negative Acetaminophen Ur Barbiturates Screen Negative Ur Phencyclidine Scrn Negative Ur Amphetamines Screen Negative U Benzodiazepines Scrn Negative U Oth Cocaine Metabols Negative U Cannabinoids Screen Negative Alcohol, Quantitative Influenza Typ A,B (EIA) - EKG Data EKG Interpreted by: Myself EKG shows normal: Sinus rhythm Rate: Tachycardia - Imaging and Cardiology CT scan - abdomen Status: Image reviewed by me, Report reviewed by me (No intra-abdominal infalmmatory process identified. Lingular consolidation with patchy opacities in RML and small L pleural effusion) CT scan - chest Status: Image reviewed by me, Report reviewed by me (Almost complete consolidation of JON, some residual mildly aerated lung at L apex. Extensive centrilobular pulmonary emphysema. Ill-defined patchy opacities in LLL, RML, RLL and RUL. Small L pleural effusion. Mild left-sided volume loss with shift of the heart and mediastinum towards the left ) CT scan - head Status: Image reviewed by me, Report reviewed by me (No intracranial hemorrhage. No intracranial mass or evidence of acute infarct. Patient motion artifact limitation) Chest x-ray Status: Image reviewed by me, Report reviewed by me (Probable multiloabr PNA of L lung. No pleural effusion) Assessment & Plan - Assessment and Plan (Free Text) Assessment: 56 yo Male with h/o EtoH abuse and alcoholic liver disease, active tobacco abuse admitted to ICU with ARDS, currently intubated and sedated Plan: Neuro: Sedated on propofol and fentanyl drips. Will start Nimbex drip. Goal RAAS -3 Maintain normothermia Neurology c/s pending. Recs appreciated CV: Sinus tachycardia. Pulm: PaO2 on ABG 70. Will adjust vent to PRVC 400/24/100%/15 Maintain spo2>90, pao2>60 ARDS-NET protocol HOB elevated >30 Aspiration precautions GI: h/o EtOH liver disease Renal: Replace electrolytes, recheck labs Endo: Maintain euglycemia 140-180 ID: Diffuse pulmonary infiltrates, r/o legionella Cefepime, Vanc, levaquin ID recs appreciated Heme: Monitor for signs of bleeding, monitor H&H - Date & Time Date: 01/25/17 Time: 12:12 <Shruthi Hector MD - Last Filed: 01/25/17 17:54> Meds - Medications Medications: Current Medications Levofloxacin/Dextrose (Levaquin 500mg) 100 mls @ 100 mls/hr IVPB DAILY [facility] Fentanyl Citrate (Fentanyl Citrate/Sodium Chloride 1 Mg/100 Ml) 100 mls @ 2 mls /hr IV .Q24H PRN; Protocol; 20 MCG/HR PRN Reason: TITRATE PER MD ORDER Last Admin: 01/25/17 13:10 Dose: 2 mls/hr Potassium Phosphate 15 mmole/ (Dextrose) 255 mls @ 42.5 mls/hr IVPB ONCE ONE Stop: 01/25/17 19:05 Last Admin: 01/25/17 15:25 Dose: 42.5 mls/hr Cefepime HCl (Maxipime 1gm) 100 mls @ 100 mls/hr IVPB Q8 [facility] PRN Reason: Protocol Vancomycin HCl (Vancomycin 1gm) 250 mls @ 167 mls/hr IVPB Q12H [facility] PRN Reason: Protocol Last Admin: 01/25/17 11:58 Dose: 167 mls/hr Cisatracurium Besylate 200 mg/ (Sodium Chloride) 200 mls @ 5.34 mls/hr IV .Q24H PRN; Protocol; 1.5 MCG/KG/MIN PRN Reason: TITRATE PER MD ORDER Results - Vital Signs Recent Vital Signs: Last Vital Signs Temp 101.6 F H 01/25/17 15:45 Pulse 124 H 01/25/17 17:04 Resp 18 01/25/17 17:04 BP 98/68 L 01/25/17 15:25 Pulse Ox 76 L 01/25/17 17:04 - Labs Result Diagrams: 01/25/17 09:50 01/25/17 09:50 Labs: Laboratory Results - last 24 hr 01/25/17 01/25/17 01/25/17 12:35 13:45 13:50 pCO2 59 H pO2 64 H 70.0 L HCO3 17.9 L ABG pH 7.09 L* ABG Total CO2 19.7 L ABG O2 Saturation 90.9 L ABG Base Excess -12.4 L ABG Potassium 2.9 L VBG pH 7.04 L* VBG pCO2 67.0 H* VBG HCO3 18.1 L VBG Total CO2 20.2 L VBG O2 Sat (Calc) 84.9 H VBG Base Excess -13.3 L VBG Potassium 3.5 L Sodium 121.0 L 124.0 L Chloride 92.0 L 98.0 Glucose 248 H 246 H Lactate 5.4 H* 1.6 Mechanical Rate 20 FiO2 21.0 100.0 Tidal Volume 400 PEEP 14 Arterial Blood Potassium 2.9 L Venous Blood Potassium 3.5 L Urine Osmolality 413 Ur Random Creatinine 81 Ur Random Sodium 33 Ur Random Potassium 40.7 Ur L.pneumophila Ag Positive H Attending/Attestation - Attestation I have personally seen and examined this patient.: Yes I have fully participated in the care of the patient.: Yes I have reviewed all pertinent clinical information: Yes Notes (Text): 01/25/17 17:45 56 y/o M for which I was called to the ER with Hypoxemic respiratory failure Large JON infiltrate Progressed quickly to multifocal infiltrates and was intubated emergently In the ER , the patient was hypoxic and manifested signs of ARDS I was at the patient's bedside for greater than 150 minutes to help stabilize his breathing and hypoxia. Pt was paralyzed with Nimbex and started on Propofol and Fentanyl . STAT Legionella was sent which was Positive Levaquin was started. Pt R lung down and on 100% FIO2 . Hyponatremia noted, possibly part of Legionella In the ER was given total of 5L NS. Repeat labs to be drawn now. Trend Sodium to make sure appropriate sodium correction. ARDSNET protocol 6ml/ kg, Plat< 30. Pao2> 55. Keep ABG PH > 7.2 if possible , permissive hypercapnea No FLOlan or Nitric oxide available Maybe a good candidate for ECMO, April Ding MD called DR. Se Goodwin. Hospitalist will follow up at night critically ill case d/w at bedside at length. cc time 200 minutes
[2017-01-25] MEDS ORDERED: Cisatracurium 2 mg/mL Inj 10ml IV ONE ×3 (12:59→15:02)
[2017-01-25] MEDS ORDERED: Midazolam 5 MG/5 ML VIAL IVP STA (13:00)
[2017-01-25] MEDS ORDERED: Fentanyl 1000mcg/100ml NS 100 ML IV PRN (13:04)
[2017-01-25] MEDS ORDERED: Potassium Phosphate 15 MMOLE in Dextrose 5% In Water 250 ML IVPB ONE (13:06)
[2017-01-25] MEDS ORDERED: Vancomycin 1gm in NS 250ml 250 ML IVPB SCH (13:15)
[2017-01-25] MEDS ORDERED: Potassium Chloride 20 mEq 100 ML IVPB SCH (13:15)
[2017-01-25 13:28] LABS: VENOUS BLOOD GAS BASE EXCESS -13.3 mmol/L (0.0-2.0)
[2017-01-25 13:31] LABS: VENOUS BLOOD PH 7.04 (7.32-7.43)
--- NOTE | 2017-01-25 13:33 | RAD ---
HISTORY: intubation COMPARISON: 01/25/2017 at 10 a.m. FINDINGS: LUNGS: Almost complete opacification of left levar thorax. Likely extensive pneumonia. Atypical bulla adjacent to left-sided mediastinum/superior left heart border as on CT examination. PLEURA: No significant pleural effusion identified, no pneumothorax apparent. CARDIOVASCULAR: Normal heart size. Endotracheal tube positioned 7.5 cm above the tracheal mela. OSSEOUS STRUCTURES: No significant abnormalities. VISUALIZED UPPER ABDOMEN: Normal. OTHER FINDINGS: None. IMPRESSION: Extensive opacification of the left lung, likely pneumonia. Unusual bulla adjacent to left heart border/left mediastinum. Status post endotracheal intubation.
[2017-01-25] MEDS ORDERED: Cefepime 1gm in NS 100ml 100 ML IVPB SCH (14:00)
[2017-01-25 14:02] LABS: ABG MECHANICAL RATE 20; ARTERIAL BLOOD GAS HCO3 17.9 mmol/L (21-28); ATERIAL BLOOD GAS PEEP 14
--- NOTE | 2017-01-25 14:06 | RAD ---
PROCEDURE: CHEST RADIOGRAPH, 1 VIEW HISTORY: repeat COMPARISON: 01/25/2017 FINDINGS: LUNGS: No change in bilateral infiltrates left greater than right. PLEURA: No pneumothorax or pleural fluid seen. CARDIOVASCULAR: Normal. OSSEOUS STRUCTURES: No significant abnormalities. VISUALIZED UPPER ABDOMEN: Nasogastric tube in satisfactory position endotracheal tube in satisfactory position OTHER FINDINGS: None. IMPRESSION: Endotracheal and nasogastric tubes in satisfactory position
[2017-01-25 14:33] LABS: ARTERIAL BLOOD GAS PH 7.09 (7.35-7.45)
--- NOTE | 2017-01-25 14:56 | RAD ---
HISTORY: central line placement COMPARISON: No prior. FINDINGS: LUNGS: There is a new right internal jugular line in the SVC with no pneumothorax. No change in infiltrates PLEURA: No significant pleural effusion identified, no pneumothorax apparent. CARDIOVASCULAR: Normal. OSSEOUS STRUCTURES: No significant abnormalities. VISUALIZED UPPER ABDOMEN: Normal. OTHER FINDINGS: None. IMPRESSION: Right IJ line in satisfactory position. No pneumothorax
[2017-01-25] MEDS ORDERED: EPINEPHrine 1 mg/ml (1:1000) Inj ONE (15:41)
--- NOTE | 2017-01-25 15:51 | CON ---
DATE: 01/25/2017 REASON FOR CONSULTATION: Pneumonia, respiratory failure. REFERRING PHYSICIAN: Nick Leigh DO History is obtained via extensive discussion with Dr. Handley (Emergency Room). I have also reviewed the chart at length, and discussed the case with the patient at length. The patient is a 56-year-old male with no significant past medical history, who presents to [facility] with a 2-day history of worsening shortness of breath at rest, dyspnea on exertion, cough, and minimal sputum production. There is no history of chest pain, coughing up of blood or chest pain -- made worse with deep respirations. The patient does state to fevers for the past 5 days. No history of chills or infectious exposure. No history of night sweats , weight loss or appetite change prior to the above events. No history of leg or calf pains. No history of syncope or diaphoresis. No history of recent travel or trauma. The patient states that the last time he was out of the country was [place]. REVIEW OF SYSTEMS: No history of nausea, vomiting or diarrhea. No acute urinary symptoms. +recent confusion. no musculoskeletal complaints. Rest of the review of systems is negative. ALLERGIES: No known allergies. SOCIAL HISTORY: Positive for tobacco, negative for alcohol. FAMILY HISTORY: No inheritable diseases. HOME MEDICATIONS: Not listed in the computer at the present time. PHYSICAL EXAMINATION: GENERAL: When I saw the patient in the Emergency Room, he was breathing approximately 40 times per minute. He was using accessory muscles for breathing. VITAL SIGNS: Temperature is 105.3, pulse 137, respiratory rate 40, blood pressure 150/98. Oxygen saturation on BIPAP--94%. HEENT: Normocephalic, atraumatic. NECK: No JVD. CARDIOVASCULAR: Positive S1, S2. No S3. LUNGS: Crackles are heard throughout the left lung. There are also crackles noted in the right lower lobe. Minimal bilateral rhonchi. No wheezing. EXTREMITIES: No clubbing, cyanosis, or edema. Calves are nontender to palpation. GASTROINTESTINAL: Abdomen is soft, nontender, nondistended. Bowel sounds are positive. SKIN: No acute rash. NEUROLOGIC: Limited at the present time. PERTINENT LABORATORY DATA: CAT scan of the chest was done and reviewed. There is an extensive infiltrate noted throughout the left lung--especially the left upper lobe. There is extensive underlying centrilobular pulmonary emphysema. There are also extensive infiltrates in the right middle lobe and right lower lobe areas. There is a smaller infiltrate in the right upper lobe. Findings are likely infectious in nature. There is no significant lymphadenopathy. Arterial blood gas was done on 100% oxygen. Results are: pH 7.52, pCO2 of 24, pO2 of 75. CBC: White count 5.4, hemoglobin 12.8, hematocrit 35.3, platelets of 294. Complete metabolic profile: Sodium 120, potassium 3.3, carbon dioxide 82, glucose 210, phosphorus 1.6, B-type natriuretic peptide 689. The rest of the metabolic profile is within normal limits. IMPRESSION: 1. Respiratory failure. 2. Extensive bilateral pneumonia. 3. Probable underlying chronic obstructive pulmonary disease. 4. Severe sepsis. 5. Electrolyte abnormalities. PLAN: Again, I did discuss the case with Dr. Handley (Emergency Room) and the patient at length. The patient presents to [facility] with main complaints of shortness of breath at rest, dyspnea on exertion, cough, and minimal sputum production for the past 2 days. As above, patient also gives a history of fevers for the past 5 days. He says he did not seek the advice of a doctor and tried to "treat himself". I did review the CAT scan of the chest-- as above. There are extensive bilateral pulmonary infiltrates noted -- consistent with an infectious process. On physical exam, the patient is in respiratory distress and will most likely need intubation. Dr. Alexandre ( infectious disease) has been called on the case for the antibiotic coverage. Dr. Raphael (neurology) and Jennifer Jennings (palliative care) have also been called on the case. Repeat labs, arterial blood gas, and films will be ordered and followed. Caicedo cultures have been ordered and will be followed when feasible. The patient is very critically ill at this point in time, and has a very guarded overall prognosis. I did discuss the above with Dr. Leigh at length. I will also discuss the above with the ICU team in the next few moments. Thank you very much for this pulmonary consultation. Robert Duval MD cc: [id number] TT: 01/25/2017 15:50:49 Confirmation # [id number] Dictation # [id number] [id number]
[2017-01-25] MEDS ORDERED: Meropenem 1 GM in Sodium Chloride 0.9% 100 ML IVPB SCH (18:09)
[2017-01-25 18:13] LABS: HEMATOCRIT 30.7 % (42.0-52.0); MEAN CELL VOLUME 98.1 fL (80.0-105.0); MEAN CORPUSCULAR HEMOGLOBIN 34.2 pg (25.0-35.0); MEAN CORPUSCULAR HGB CONC 34.9 g/dl (31.0-37.0); MEAN PLATELET VOLUME 9.9 fl (7.0-11.0); RED CELL DISTRIBUTION WIDTH 15.4 % (11.5-14.5); WHITE BLOOD COUNT 4.7 10^3/ul (4.5-11.0)
[2017-01-25 18:23] LABS: ALB/GLOB RATIO 0.9 (1.1-1.8); ALKALINE PHOSPHATASE 42 U/L (38-133); ALT/SGPT 102 U/L (7-56); AST/SGOT 219 U/L (15-59); BLOOD UREA NITROGEN 17 mg/dL (7-21); CARBON DIOXIDE 20 mmol/L (21-33); CHLORIDE 95 mmol/L (98-107); GFR AFRICAN-AMERICAN > 60; GLUCOSE,RANDOM 282 mg/dL (70-110); POTASSIUM 4.3 mmol/L (3.6-5.0); SODIUM 121 mmol/L (132-148); TOTAL PROTEIN 5.4 g/dL (5.8-8.3)
--- NOTE | 2017-01-25 18:27 | CARD ---
APPROVED REPORT EKG Measurement Heart [id number] <Conclusion> Sinus tachycardia Minimal voltage criteria for LVH, may be normal variant Borderline ECG
[2017-01-25 18:29] LABS: ARTERIAL BLOOD GAS HCO3 14.1 mmol/L (21-28); ARTERIAL BLOOD GAS O2 CAPACITY 13.3 mL/dl (16-24); ARTERIAL BLOOD GAS O2 CONTENT 12.6 ML/dl (15-23); ARTERIAL BLOOD HGB O2 SAT 91.9 % (95.0-98.0); CARBOXYHEMOGLOBIN 1.9 % (0.5-1.5); HHB 5.4 % (0-5); METHEMOGLOBIN 0.8 % (0.0-3.0)
--- NOTE | 2017-01-25 18:29 | CON ---
DATE: 01/25/2017 HISTORY OF PRESENT ILLNESS: This is a 56-year-old male who came with shortness of breath and a produ ctive cough since and came to the Emergency Room. The patient was intubated, cardioprotection of the airway and the patient was very lethargic and weak and altered mental status, confused, and ca lled to evaluate the patient. PAST MEDICAL HISTORY: Hypertension, alcohol liver disease, tobacco abuse. ALLERGIES: No known drug allergy. PHYSICAL EXAMINATION: The patient is very lethargic and not responding, intubated. The patient is o n propofol. Both pupils reactive. Spontaneous movement of the extremities noted. Deep tendon refle xes 1+. Both plantars are downgoing. Sensory appears intact. Cerebellar and gait deferred. IMPRESSION: Encephalopathy, possibly toxic metabolic. The patient was seen by Dr. Duval for respi ratory failure and extensive bilateral pneumonia. PLAN: Continue present management. Will followup. Adam Raphael MD cc: [id number] TT: 01/25/2017 18:29:02 Confirmation # [id number] Dictation # [id number]
[2017-01-25] MEDS ORDERED: Sodium Bicarbonate (8.4%) 50 Meq Syringe IVP ONE (18:30)
[2017-01-25] MEDS ORDERED: Sodium Bicarbonate (8.4%) 50 Meq Syringe ONE (18:32)
[2017-01-25 18:33] LABS: ARTERIAL BLOOD GAS PH 7.04 (7.35-7.45)
[2017-01-25 19:28] LABS: CALCIUM 5.9 mg/dL (8.4-10.5)
--- NOTE | 2017-01-25 19:57 | HP ---
I was called down to the Emergency Room today by the Emergency Room doctor to admit the patient who w as in an altered mental status. He is also short of breath. He is a 56-year-old man who was coughin g and feeling sick for several days. His ex- woke him up at 8 a.m. and he was confused and unste lázaro, very short of breath, coughing. He stated it started about a week ago, but the last 2 days it g ot very bad, body aches, coughing, a lot of phlegm he bringing up. He has not moved out of the [facility] in 10 years. He used to drink alcohol, but nothing now. He is not doing well, looked very septic and in severe condition and it looks like he is getting worse. He was on BiPAP when I saw him in [facility] Emergency Room. He is not a smoker, no alcohol, no drugs. ALLERGIES: No known drug allergies. MEDICATIONS: Can get a hold of his medications. REVIEW OF SYSTEMS: He has fevers, sweats, chills, fatigued. No change in vision. No photophobia, n o hearing changes, no sore throat. He is short of breath, he is coughing, he bringing up phlegm. He has dyspnea on exertion. No chest pain or palpitations. He has no nausea, vomiting or abdominal pa in. No problems urinating. No back pain. Skin for the most part is intact. No rashes. No headach e, no dizziness, no focal weakness. No problems urinating. No easy bleeding. He is anxious. PHYSICAL EXAMINATION: VITAL SIGNS: He has a 105.3 temp, a 137-150 pulse, a 22 respiratory rate to a 35 respiratory rate, a 150/98 blood pressure and a 92% to a 91% to a 90% O2 sat with oxygen. HEENT: Head is atraumatic, normocephalic. Scalp with lesions. Extraocular muscles are intact. Pup ils equal, reactive to light. Dry mucous membranes. NECK: Supple, no JVD, no meningeal signs. HEART: Very tachycardic with a systolic murmur. LUNGS: Decreased breath sounds bilaterally, rhonchi, left more than right, diminished breath sounds, barely breathing on BiPAP. ABDOMEN: Mildly distended, no tenderness to palpation. No guarding, no rebound or bowel sounds. RECTAL: In the Emergency Room was normal. Heme negative. GENITOURINARY: No testicular pain or swelling through the Emergency Room doctor. No CVA tenderness. EXTREMITIES: Have no edema. No cyanosis, no clubbing. Has range of motion of all 4 extremities. SKIN: Diaphoretic. No change in rashes or anything. NEUROLOGIC: He is alert, awake, oriented. He knows what is going on, in and out of it mentally, tho ugh. He sometimes gets very fatigued. No suicidal thoughts. He is septic, very tachycardic, short of tyshawn ath. I immediately called in pulmonary, infectious disease and called the [employer] director to come down. I feel that he will be intubated very shortly due to his breathing on BiPAP. He had a chest x-rays, abdominal CAT scans, head CT, chest CT. He has left-sided pneumonia, which quickly went to bilatera l pneumonia. He was intubated. He had neurology for change in mentation, probably all encephalopath ic. Pulmonary is involved for control over his bilateral pneumonia. He is in big distress. He has got respiratory failure, extensive bilateral pneumonia and probably underlying chronic obstructive pu lmonary disease, severe sepsis. LABORATORY DATA: Positive for legionella pneumophilia. Toxicology was negative. Urine was large bl ood. Chemistries: Sodium 120, potassium 3.3, that was replaced and is on IV sodium; BUN 14, creatin ine 1, GFR is greater than 60, sugars were 210 and 258; I put him on an AC coverage of insulin. Calc ium is 8.6, phosphorus 1.6, magnesium 1.7, total bili is 1.1, AST 36, ALT 32, alkaline phosphatase 74 , lactic dehydrogenase is 500. Total creatinine kinase is 81. Troponin I of 0.03. BNP is 689. Tot al protein is 8.1. He had very poor blood gases with a 24 pCO2, a 75 pO2, a 19.6 hCO3 and ABG was 7. 52, it went as low as 7.04. INR was 0.94. White count 4.7, hemoglobin 10.7, hematocrit 30.7, platel ets of 225. He is in complete distress in the intensive care unit. He is in the intensive care unit with bilate ral pneumonia, sepsis, respiratory failure, electrolyte abnormalities and change in mentation. He wi ll be in the intensive care unit with multiple consults, multiple medications and IV antibiotics. He was intubated and hopefully he will pull through. Nick Leigh DO cc: [id number] TT: 01/25/2017 19:56:05 dn
[2017-01-25] MEDS ORDERED: Amiodarone 150 mg/D5W 100 ml 100 ML ONE (21:31)
[2017-01-25] MEDS ORDERED: Amiodarone 150 mg/D5W 100 ml 100 ML IVPB ONE (21:39)
[2017-01-25] MEDS ORDERED: Amiodarone 360 mg/D5W 200 ml 200 ML IV SCH (21:45)
[2017-01-25] MEDS ORDERED: Insulin Reg-HIGH-Coverage SC SCH (22:00)
[2017-01-25] MEDS ORDERED: EPINEPHrine- 1 MG in Sodium Chloride 0.9% 50 ML IV PRN ×2 (23:00→23:06)
--- NOTE | 2017-01-26 00:02 | CP.PCM.PRO ---
Pronouncement of Note - Clinical Findings Physical Exam: No Response Verbal/Painful Stimuli, Absent Peripheral Pulses{ Carotid & Femoral}, Absent Heart & Breath Sounds, No Pupillary Light Reflex, No Corneal Reflex, Pupils Fixed & Dilated, Absence of Vital Signs - Pronouncement Time Time of Pronouncement of : 23:48 - Notifications Pronouncement Notifications: Family Notified, Atending Notified Animal Attendants And Trainers Notified: Yes - Autopsy Autopsy Requested: No - [place]: [id number] Additional Comments: Despite multiple resuscitative efforts, the patient at 11:48pm. Family present at bedside; condolences offered; will reach out to PMD to notify him as well. EDRS started, needs to be completed and certified by PMD.
[2017-01-26 00:03] VITALS: BP 137/95; PULSE 61; RESP 124; O2SAT 11
--- NOTE | 2017-01-26 01:55 | CP.PCM.PN ---
Subjective - Date & Time of Evaluation Date of Evaluation: 01/26/17 Time of Evaluation: 01:45 - Subjective Subjective: CODE NOTE. Pt admitted with Legionella pneumonia and ARDS. Pt seen and examined at bedside. Pt in acute distress. Code Blue called. CPR was initiated. Pt shocked multiple times Pt coded a total of 8 times. Pt received 18 rounds of epinephrine. He was given 1 amp of bicarb. He was given 1 amp of calcium. He was given 2 doses of atropine. He was given a bolus of amiodarone, followed by amiodarone drip. He was started on an epi drip and still continued to code. Pt succumbed to his illness at 11:48 PM. Objective - Vital Signs/Intake and Output Vital Signs (last 24 hours): Temp Pulse Resp BP Pulse Ox 101.2 F H 61 124 H 137/95 H 11 L 01/25/17 18:00 01/25/17 23:53 01/25/17 23:43 01/25/17 23:46 01/25/17 23:40 Intake and Output: 01/25/17 01/26/17 18:59 06:59 Intake Total 2240 Output Total 50 Balance 2190 - Medications Medications: Current Medications Hydrocortisone Sodium Succinate (Solu-Cortef) 100 mg IVP Q8 [facility] Levofloxacin/Dextrose (Levaquin 500mg) 100 mls @ 100 mls/hr IVPB DAILY [facility] Last Admin: 01/25/17 16:00 Dose: 100 mls/hr Fentanyl Citrate (Fentanyl Citrate/Sodium Chloride 1 Mg/100 Ml) 100 mls @ 2 mls /hr IV .Q24H PRN; Protocol; 20 MCG/HR PRN Reason: TITRATE PER MD ORDER Last Admin: 01/25/17 13:10 Dose: 2 mls/hr Vancomycin HCl (Vancomycin 1gm) 250 mls @ 167 mls/hr IVPB Q12H [facility] PRN Reason: Protocol Last Admin: 01/25/17 11:58 Dose: 167 mls/hr Cisatracurium Besylate 200 mg/ (Sodium Chloride) 200 mls @ 5.34 mls/hr IV .Q24H PRN; Protocol; 1.5 MCG/KG/MIN PRN Reason: TITRATE PER MD ORDER Meropenem 1 gm/ Sodium (Chloride) 100 mls @ 100 mls/hr IVPB Q8 [facility] PRN Reason: Protocol Stop: 02/01/17 18:10 Last Admin: 01/25/17 19:52 Dose: 100 mls/hr Norepinephrine Bitartrate 4 mg (/ Dextrose) 254 mls @ 15.24 mls/hr IV .[id number] PRN; Protocol; 4 MCG/MIN PRN Reason: TITRATE PER MD ORDER Propofol (Diprivan) 100 mls @ 1.783 mls/hr IV .Q24H PRN; Protocol; 5 MCG/KG/MIN PRN Reason: TITRATE PER MD ORDER Last Admin: 01/25/17 21:06 Dose: 1.783 mls/hr Amiodarone HCl/Dextrose (Nexterone 360 Mg In D5w 200 Ml (Premix)) 200 mls @ 33.333 mls/hr IV .Q6H [facility]; 1 MG/MIN PRN Reason: Protocol Last Admin: 01/25/17 21:55 Dose: 33.333 mls/hr Epinephrine HCl 1 mg/ Sodium (Chloride) 51 mls @ 3.06 mls/hr IV .[id number] PRN; Protocol; 1 MCG/MIN PRN Reason: TITRATE PER MD ORDER Last Admin: 01/25/17 23:15 Dose: 3.06 mls/hr Insulin Human Regular (Humulin R High) 0 units SC ACHS [facility] PRN Reason: Protocol Last Admin: 01/26/17 00:25 Dose: Not Given - Labs Labs: 01/25/17 18:00 01/25/17 18:00 PT 10.2 Seconds (9.9-11.8) 01/25/17 09:50 INR 0.94 (0.93-1.08) 01/25/17 09:50 APTT 39.6 Seconds (23.7-30.8) H 01/25/17 09:50 - Constitutional Appears: In Acute Distress - Head Exam Head Exam: absent: NORMAL INSPECTION - Eye Exam Eye Exam: absent: PERRL Additional comments: Pupils unreactive to light - Respiratory Exam Respiratory Exam: Respiratory Distress. absent: NORMAL BREATHING PATTERN Additional comments: Apnea - Cardiovascular Exam Cardiovascular Exam: Bradycardia. absent: Irregular Rhythm - GI/Abdominal Exam GI & Abdominal Exam: Distended - Neurological Exam Neurological Exam: Altered. absent: Alert, Awake, Oriented x3 - Psychiatric Exam Additional comments: Unable to assess- cardiac arrest - Skin Skin Exam: Pallor Assessment and Plan - Assessment and Plan (Free Text) Assessment: This is a 56 yo male with past medical hx of alcohol abuse and smoking admitted to the ICU with legionella pneumonia and ARDS. Pt was intubated and mechanically ventilated. During the evening, pt went into cardiac arrest multiple times. Numerous attempts were made to revive him. Pt 11:48 PM, January 25, 2017. 1. Cardiac arrest -pt 11:[address] Presley
[2017-01-26 02:47] VITALS: TEMP 101.9
== END 2017-01-25 23:48 | DRG 871 ==
LOC: ED 09:23 → MERGE 11:40 → ERH 11:40 → CCU 15:25
PROVIDERS: ADMIT Family Medicine; ATTEND Family Medicine
PROC: 5A1935Z Respiratory Ventilation, Less than 24 Consecutive Hours (ICD-10-PCS; principal; 2017-01-25)
PROC: 0BH17EZ Insertion of Endotracheal Airway into Trachea, Via Natural or Artificial Opening (ICD-10-PCS; 2017-01-25)
PROC: 5A12012 Performance of Cardiac Output, Single, Manual (ICD-10-PCS; 2017-01-25)
DX: A41.9 Sepsis, unspecified organism (principal); J96.91 Respiratory failure, unspecified with hypoxia; A48.1 Legionnaires' disease; G92 Toxic encephalopathy; K70.9 Alcoholic liver disease, unspecified; E87.1 Hypo-osmolality and hyponatremia; R65.20 Severe sepsis without septic shock; I10 Essential (primary) hypertension; L30.9 Dermatitis, unspecified; J44.9 Chronic obstructive pulmonary disease, unspecified; F10.10 Alcohol abuse, uncomplicated; Y90.0 Blood alcohol level of less than 20 mg/100 ml; Z72.0 Tobacco use